=== PATIENT | male | born 1990 | race African-American/Black ===

== ENCOUNTER 2025-02-28 07:16 | Emergency (ER) | payer OTHER ==
[~2025-02-28] VITALS: Ht 190.5 cm; Wt 116.0 kg
[2025-02-28] MEDS: LIDOCAINE VISCOUS 2% SOLN 15 ML UDC SS ONE (08:59)
[2025-02-28] MEDS ORDERED: AMOX500C PO (09:38)
[2025-02-28] MEDS ORDERED: LIDO15SO8 PO (09:38)
[2025-02-28 09:44] VITALS: BP 126/80; O2SAT 97
[2025-02-28] MEDS: AMOXICILLIN 500 MG CAP PO ONE (09:51)
[2025-02-28 09:53] VITALS: TEMP 99.1
== END 2025-02-28 09:55 | disposition home or self-care (01) ==
LOC: M ED 07:16
DX: J02.0 Streptococcal pharyngitis (principal)

== ENCOUNTER → 2025-07-17 | Outpatient (CLI) | payer OTHER ==
[~2025-07-17] MED LIST: AMOX500C PO; LIDO15SO8 PO
[2025-07-17 12:41] LABS: BASO # 0.0 10^3/uL (0.0-0.2); BASO % 0.5 % (0.0-1.0); EOS # 0.1 10^3/uL (0.0-0.5); EOS % 1.9 % (0.0-3.0); LYMPH # 1.7 10^3/uL (1.5-5.0); LYMPH % 45.2 % (24.0-44.0); MONO # 0.3 10^3/uL (0.0-0.8); MONO % 8.6 % (2.0-8.0); NEUTROPHILS # 1.6 10^3/uL (1.5-8.5); NEUTROPHILS % 43.5 % (36.0-66.0); PLATELET COUNT, AUTOMATED 216 10^3/uL (150-450)
[2025-07-17 13:14] LABS: CALCIUM LEVEL 9.1 MG/DL (8.5-10.1); CARBON DIOXIDE LEVEL 30.0 MMOL/L (20-31); CHLORIDE LEVEL 107.0 MMOL/L (98-107); CREATININE FOR GFR 1.14 MG/DL (0.70-1.30); GLOMERULAR FILTRATION RATE 87.1 (>60); POTASSIUM SERUM 4.6 MMOL/L (3.5-5.1); SODIUM LEVEL 144.0 MMOL/L (136-145)
== END ==
LOC: M WUC 09:53
PROVIDERS: ATTEND Podiatrist
DX: M20.12 Hallux valgus (acquired), left foot (principal); M79.672 Pain in left foot

== ENCOUNTER → 2025-07-30 | Outpatient (CLI) | payer OTHER | LOC: M WUC 10:35 | PROVIDERS: ATTEND Podiatrist | DX: Z01.818 Encounter for other preprocedural examination (principal); M20.12 Hallux valgus (acquired), left foot; M79.672 Pain in left foot ==

== ENCOUNTER 2025-08-01 08:59 | Day surgery (SDC) | payer OTHER ==
[~2025-08-01] VITALS: Ht 193 cm; Wt 119.0 kg
[2025-08-01] MEDS ORDERED: LR 1,000 ML IV SCH (09:10)
[2025-08-01] MEDS ORDERED: ONDANSETRON 4MG/2ML VIAL As Ordered ONE (10:04)
[2025-08-01] MEDS ORDERED: KETOROLAC 30 MG/ML 1 ML VIAL As Ordered ONE (10:04)
[2025-08-01] MEDS ORDERED: LIDOCAINE 2% 100 MG/5 ML SDV (FOR ANES.) As Ordered ONE (10:04)
[2025-08-01] MEDS ORDERED: MIDAZOLAM INJ 2 MG/2 ML VIAL As Ordered ONE (10:05)
[2025-08-01] MEDS ORDERED: PROPOFOL 1,000 MG/100 ML VIAL As Ordered ONE (10:05)
[2025-08-01] MEDS: ceFAZolin SOD 2 GM IV ONCE IV ONE (11:40)
[2025-08-01] MEDS: LIDOCAINE 2% MDV 20 ML VIAL As Ordered ONE (12:00)
[2025-08-01] MEDS: GENTAMICIN SULF 80 MG/2 ML VIAL As Ordered ONE (12:22)
[2025-08-01] MEDS: dexAMETHasone 4 MG/ML 1 ML VIAL As Ordered ONE (12:56)
[2025-08-01 14:03] VITALS: BP 128/82; TEMP 96.8; O2SAT 99
== END 2025-08-01 14:25 | disposition home or self-care (01) ==
LOC: M SDC 08:59
PROVIDERS: ATTEND Podiatrist
DX: M20.12 Hallux valgus (acquired), left foot (principal); F17.290 Nicotine dependence, other tobacco product, uncomplicated
CPT/HCPCS: 28296; 73630; 76000; 88300; 97116; 97530; C1713; J0665; J0688; J1100; J1580; J1885; J2250; J2405; J3010